=== PATIENT | male | born 1955 | race Caucasian/White ===

== ENCOUNTER 2016-11-07 08:08 | Day surgery (SDC) | payer OTHER ==
[~2016-11-07] VITALS: Ht 170.2 cm; Wt 86.2 kg
[~2016-11-07 08:08] MED LIST: ASPIR 8181 M1 PO; ASPIRIN81 M2 PO; ATIVAN0.5 MG PO; BACLOFEN10 MG PO; BUPROBAN150 MG PO; BUPROPION XL150 MG PO; CIALIS2.5 MG PO; DAILY VALUE1 EACH PO; GABAPENTIN300 MG PO; HYDROCHLOROTH12.5 M3 PO; IBUPROFEN600 MG PO; LIDODERM 5% P1 PATCH TD; LIPITOR10 MG PO; LOSARTAN POTAS100 MG PO; LOSARTAN POTASS25 MG PO; MEDROL DOSEPAK4 MG PO; MICROZIDE12.5 M1 PO; MOTRIN600 MG PO; NAPROSYN500 MG PO; NEURONTIN100 MG PO; NEURONTIN400 MG PO; NORCO 5/3251 TABLET PO; NORVASC5 MG PO; PERCOCET 5/31 TABLET PO; ULTRAM50 MG PO; VALIUM5 MG PO
== END 2016-11-07 10:00 | disposition home or self-care (01) ==
LOC: PAIN 08:08 → SDC 08:45 → PAIN 08:45
DX: M51.16 Intervertebral disc disorders with radiculopathy, lumbar region (principal); I10 Essential (primary) hypertension; F41.8 Other specified anxiety disorders; M47.812 Spondylosis without myelopathy or radiculopathy, cervical region; E78.5 Hyperlipidemia, unspecified; E66.9 Obesity, unspecified; Z68.31 Body mass index [BMI] 31.0-31.9, adult; E07.9 Disorder of thyroid, unspecified; M12.88 Other specific arthropathies, not elsewhere classified, other specified site; Z87.891 Personal history of nicotine dependence; Z79.82 Long term (current) use of aspirin
CPT/HCPCS: J1100; J2250; J3010

== ENCOUNTER 2018-02-05 10:36 | Day surgery (SDC) | payer OTHER ==
[~2018-02-05] VITALS: Ht 170.2 cm; Wt 90.7 kg
[~2018-02-05 10:36] MED LIST changes: +MOBIC15 MG PO; -NEURONTIN400 MG PO; +NEURONTIN600 MG PO
== END 2018-02-05 12:47 | disposition home or self-care (01) ==
LOC: PAIN 10:36 → SDC 11:15 → PAIN 12:47
DX: M47.26 Other spondylosis with radiculopathy, lumbar region (principal); M43.16 Spondylolisthesis, lumbar region; M47.812 Spondylosis without myelopathy or radiculopathy, cervical region; F41.8 Other specified anxiety disorders; I10 Essential (primary) hypertension; R01.1 Cardiac murmur, unspecified; E03.9 Hypothyroidism, unspecified; J45.909 Unspecified asthma, uncomplicated; Z79.82 Long term (current) use of aspirin; Z79.891 Long term (current) use of opiate analgesic; Z88.0 Allergy status to penicillin; Z88.5 Allergy status to narcotic agent; Z87.891 Personal history of nicotine dependence
CPT/HCPCS: J1030; J2250; J3010; S0020

== ENCOUNTER 2018-02-12 06:53 | Day surgery (SDC) | payer OTHER ==
[~2018-02-12] VITALS: Ht 170.2 cm; Wt 90.7 kg
== END 2018-02-12 08:45 | disposition home or self-care (01) ==
LOC: PAIN 06:53 → SDC 07:30 → PAIN 08:45
DX: M47.816 Spondylosis without myelopathy or radiculopathy, lumbar region (principal); M43.16 Spondylolisthesis, lumbar region; M47.812 Spondylosis without myelopathy or radiculopathy, cervical region; M54.16 Radiculopathy, lumbar region; M17.10 Unilateral primary osteoarthritis, unspecified knee; M25.551 Pain in right hip; I10 Essential (primary) hypertension; N40.0 Benign prostatic hyperplasia without lower urinary tract symptoms; Z79.82 Long term (current) use of aspirin; Z87.891 Personal history of nicotine dependence
CPT/HCPCS: J1030; J2250; J3010; S0020